=== PATIENT | female | born 1955 | race Caucasian/White ===

== ENCOUNTER 2017-12-01 10:48 | Emergency (ER) | payer BC, OTHER ==
[2017-12-01 10:54] VITALS: BP 167/88
--- OUTSIDE RECORDS SUMMARY | 2017-12-01 10:57 | XMS REPORT ---
:1955 External Reference #:[id number] Author Organization [facility] Address [address] [place] [address] Phone [phone] Care Team Providers Name Role Phone Gerri Kidd Care Team Information Medical Oncology Physician Unavailable Gerri Kidd Primary Care Physician Unavailable Payers Type Date Identification Numbers Payment Provider Subscriber Commercial Policy Number: [id number] [place] Plan Calli Castanon PayID: [id number] [address] [place] [address] Problems Date Description Provider Status Onset: 02/19/2012 Left lower quadrant pain Stephane Khan M.D. Active Family History Date Family Member(s) Problem(s) Comments General No family hx lung, colon, breast ca.No family hx diabetes. Father 88 d/t [place]. CABG/stents. Stroke, Prostate Ca. Colonic polyps. Mother 44, cerebral aneurysm. Patient's own Mra negative . Number of Children 3. oldest daughter, 30yo - Afib. Number of Siblings Siblings: 2 older brothers - HTN, Prostate CA - both. Social History Type Date Description Comments Education Highest level of education completed is a bachelor's degree. never finished masters [employer] school in virology and biochemistry. 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 Cigarette Use Current Cigarette Smoker 1 1 1/2 ppd when smokes. Pack Daily off and on for 25 years. smokes. Quit smoking with each . ETOH Use Currently consumes alcohol 1 glass of wine a week. Smoking Patient is a current smoker, off and on. smokes some days Daily Caffeine Consumes on average 3 cups with skim milk. of coffee per day Exercise Type/Frequency Exercises regularly. Walks Current dog nightly x 45 minutes, takes the stairs and mireles far away. Yoga 2/week Seat Belt/Car Seat Always uses a seat belt Allergies, Adverse Reactions, Alerts Date Description Reaction Status Severity Comments 11/19/1997 Codeine nausea, dizzyness,vomiting. active 11/15/2010 Levaquin hallucination active Medications Medication Date Status Form Strength Qnty SIG Indications Ordering Provider No Active 10/12/ Active Unknown Medications 2017 No Active 10/07/ Hx Unknown Medications 2017 - 2017 Nitrofurantoin 10/07/ Hx Capsules 100mg 10caps 1 by mouth Rashida Monohyd Macro 2018 - twice a [place], 10/12/ day with Afnp-C 2017 food Chantix Starting 08/08/ Hx Tablets 0.5mg X 11 1tabs refill Rick Wick 2017 - & 1 mg with 1 mg Negar, 10/06/ X 42 by mouth M.D. 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 2014 Ciprofloxacin 02/18/ Hx Tablets 500mg 20tabs 1 po bid Stephane T. HCL 2011 - Midura, 08/19/ M.D. 2014 Doxycline 11/15/ Hx Capsules 100mg 20caps 1 po bid 466.0 Donn A. 2010 - Darlow, 11/25/ MJoyce 2010 Keflex 09/29/ Hx Capsules 500mg 30caps 1 po tid Gerri Bustamante 2009 - with Michelle, 01/27/ yogurt/chandra Dean 2009 ir. Zyrtec 09/06/ Hx Tabs 10mg 16tabs 1 PO qd Lurdes 1999 - prn Max, 09/22/ DOCUMENT CONTROL ASSOCIATE 1999 Zithromax 06/03/ Hx 250mg 6units 2 Tabs Day Rick F. 1997 - 1 Shallish, 06/12/ M.D. 1997 1 Tab qd Days 2 Thru 5 Robitussin ac 06/03/ Hx 4Oz 1-2 TSP PO Rick F. 1997 - Q4H prn Shallish, 06/12/ Cough M.D. 1997 Zithromax 11/19/ Hx 250mg 6units 2 Tabs Day Kaur 1997 - 1 Konefal, 11/24/ BEREAVEMENT COUNSELOR-F 1997 1 Tab qd Days 2 Thru 5 Tessalon Pearls 11/19/ Hx 20unit 1 Or 2 tid Kaur 1997 - s Or QHS prn Konefal, 11/20/ BEREAVEMENT COUNSELOR-F 1997 Immunizations CPT Code Status Date Vaccine Lot # [id number] Given 11/07/2017 Tdap Tetanus, W Pertussis [id number] Vital Signs Date Vital Result Comment 11/07/2017 BP Systolic 120 mmHg BP Diastolic 80 mmHg Heart Rate 78 /min Body Temperature 97.0 F Height 59.5 inches 4'11.50" Weight 96.00 lb BMI (Body Mass Index) 19.1 kg/m2 10/07/2017 BP Systolic 154 mmHg BP Diastolic 66 mmHg Heart Rate 80 /min Body Temperature 99.6 F Respiratory Rate 16 /min Height 60 inches 5'0" Weight 98.00 lb BMI (Body Mass Index) 19.1 kg/m2 05/23/2016 BP Systolic 110 mmHg BP Diastolic 72 mmHg Heart Rate 84 /min Body Temperature 97.7 F Respiratory Rate 16 /min Height 60 inches 5'0" Weight 97.00 lb BMI (Body Mass Index) 18.9 kg/m2 04/03/2016 BP Systolic 126 mmHg BP Diastolic 74 mmHg Heart Rate 84 /min Body Temperature 97.9 F Respiratory Rate 16 /min Height 60 inches 5'0" Weight 96.12 lb BMI (Body Mass Index) 18.8 kg/m2 09/09/2014 BP Systolic 138 mmHg BP Diastolic 80 mmHg Heart Rate 88 /min Respiratory Rate 16 /min Height 60 inches 5'0" Weight 100.12 lb BMI (Body Mass Index) 19.6 kg/m2 08/19/2014 BP Systolic 162 mmHg BP Diastolic 86 mmHg Heart Rate 96 /min Body Temperature 98.1 F Respiratory Rate 16 /min Height 60 inches 5'0" Weight 99.00 lb BMI (Body Mass Index) 19.3 kg/m2 02/19/2012 BP Systolic 136 mmHg BP Diastolic 86 mmHg Heart Rate 102 /min Body Temperature 99.0 F Height 60 inches 5'0" Weight 101.00 lb BMI (Body Mass Index) 19.7 kg/m2 11/29/2010 BP Systolic 138 mmHg BP Diastolic 80 mmHg Heart Rate 84 /min Respiratory Rate 16 /min Height 60 inches 5'0" Weight 100.00 lb BMI (Body Mass Index) 19.5 kg/m2 11/21/2010 BP Systolic 160 mmHg BP Diastolic 80 mmHg Heart Rate 84 /min Body Temperature 98.6 F Height 60 inches 5'0" Weight 101.00 lb BMI (Body Mass Index) 19.7 kg/m2 11/15/2010 BP Systolic 150 mmHg BP Diastolic 90 mmHg Heart Rate 112 /min Body Temperature 99.1 F Respiratory Rate 16 /min O2 % BldC Oximetry 96 % Height 60 inches 5'0" Weight 101.00 lb BMI (Body Mass Index) 19.7 kg/m2 02/24/2010 BP Systolic 114 mmHg BP Diastolic 76 mmHg Heart Rate 84 /min Body Temperature 98.4 F Height 60 inches 5'0" Weight 108.00 lb BMI (Body Mass Index) 21.1 kg/m2 01/27/2010 BP Systolic 110 mmHg BP Diastolic 80 mmHg Heart Rate 88 /min Height 60 inches 5'0" Weight 110.00 lb BMI (Body Mass Index) 21.5 kg/m2 09/26/2009 BP Systolic 130 mmHg BP Diastolic 80 mmHg Heart Rate 102 /min Body Temperature 100.4 F Weight 113.00 lb 09/13/2009 BP Systolic 124 mmHg BP Diastolic 80 mmHg Heart Rate 96 /min Body Temperature 97.7 F Height 59 inches 4'11" Weight 113.00 lb BMI (Body Mass Index) 22.8 kg/m2 09/07/1999 BP Systolic 128 mmHg BP Diastolic 70 mmHg Body Temperature 98.4 F Weight 109.00 lb 06/03/1998 Body Temperature 98.2 F Weight 99.00 lb 11/19/1997 BP Systolic 114 mmHg R Arm BP Diastolic 70 mmHg R Arm Body Temperature 97.8 F Weight 101.50 lb Results Test Date Test Result H/L Range Note Laboratory test 11/07/2017 Cytology Thinprep <pending> finding w/rfx(cmc) Ua - Micro (Fma) 10/07/2017 Appearance cloudy Color yellow Glucose, Urine (Fma/CMC/CTX) - Bilirubin - Ketones - SP Grav >=1.030 Blood moderate PH 5.0 Protein - Urobil 0.2 Nitrite - Leukocytes (Fma/CMC/Centrex) small Hyaline - /Lpf Granular - /Lpf WBC (Fma,Centrex) 25-30 RBC 3-5 Mucus - /Lpf Epith few renal tubulr /Lpf Bacteria 1+ /Hpf Amorphous - /Lpf Crystals, Fluid (Fma/CMC/CTX) - Urine Culture And 10/07/2017 Urine Culture SEE RESULT BELOW 1 Sensitivities Laboratory test finding 09/21/2016 Surgical Interface SEE RESULT BELOW 2, 3 Order Laboratory test finding 06/07/2016 TSH 1.350 uIU/mL 0.450-4.5 4 00 CBC With 06/07/2016 WBC 7.2 x10E3/uL 3.4-10.8 4 Differential/Platelet RBC 4.82 x10E6/uL 3.77-5.28 4 Hemoglobin 14.4 g/dL 11.1-15.9 4 Hematocrit 44.5 % 34.0-46.6 4 MCV 92 fL 79-97 4 MCH 29.9 pg 26.6-33.0 4 MCHC 32.4 g/dL 31.5-35.7 4 RDW 13.8 % 12.3-15.4 4 Platelets 340 x10E3/uL 150-379 4 Neutrophils 55 % 4 Lymphs 36 % 4 Monocytes 7 % 4 Eos 2 % 4 Basos 0 % 4 Immature Cells TNP 4 Neutrophils (Absolute) 4.0 x10E3/uL 1.4-7.0 4 Lymphs (Absolute) 2.6 x10E3/uL 0.7-3.1 4 Monocytes(Absolute) 0.5 x10E3/uL 0.1-0.9 4 Eos (Absolute) 0.2 x10E3/uL 0.0-0.4 4 Baso (Absolute) 0.0 x10E3/uL 0.0-0.2 4 Immature Granulocytes 0 % 4 Immature Grans (Abs) 0.0 x10E3/uL 0.0-0.1 4 NRBC TNP 4 Hematology Comments: TNP 4 Metabolic Panel (14), Comprehensive 06/07/2016 Glucose, Serum 93 mg/dL 65 -99 4 BUN 16 mg/dL 8-27 4 Creatinine, Serum 0.63 mg/dL 0.57-1.00 4 eGFR If NonAfricn Am 97 mL/min/1.73 >59 4 eGFR If Africn Am 112 mL/min/1.73 >59 4 BUN/Creatinine Ratio 25 11-26 4 Sodium, Serum 142 mmol/L 134-144 4, 5 Potassium, Serum 4.5 mmol/L 3.5-5.2 4 Chloride, Serum 102 mmol/L 96-106 4, 6 Carbon Dioxide, Total 26 mmol/L 18-29 4 Calcium, Serum 9.7 mg/dL 8.7-10.3 4 Protein, Total, Serum 7.0 g/dL 6.0-8.5 4 Albumin, Serum 4.7 g/dL 3.6-4.8 4 Globulin, Total 2.3 g/dL 1.5-4.5 4 A/G Ratio 2.0 1.1-2.5 4 Bilirubin, Total 0.4 mg/dL 0.0-1.2 4 Alkaline Phosphatase, S 77 IU/L 39-117 4 Ast (Sgot) 27 IU/L 0-40 4 Alt (SGPT) 28 IU/L 0-32 4 Laboratory test finding 06/07/2016 Vitamin D, 25-Hydroxy 30.9 ng/mL 30.0- 100.0 4, 7 Ua - Micro (Fma) 04/03/2016 Appearance cloudy Color yellow Glucose, Urine (Fma/CMC/CTX) neg Bilirubin neg Ketones neg SP Grav 1.020 Blood trace-lysed PH 7.0 Protein neg Urobil 0.2 Nitrite positive Leukocytes (Fma/CMC/Centrex) large WBC (Fma,Centrex) >75 RBC 1-2 Mucus small /Lpf Epith few /Lpf Bacteria 4+ /Hpf Urine Culture Routine 04/03/2016 Urine Culture, Routine Final report 8 , 9 Result 1 Escherichia coli 8, 10 Antimicrobial Susceptibility See Comment: 8, 11 Comprehensive Metabolic 09/15/2014 Glucose 95 mg/dL 70-100 12 BUN 19 mg/dL High 4-18 12 Creatinine, Serum 0.67 mg/dL 0.50-1.10 12 Sodium 143 mmol/L 136-146 12 Potassium 4.7 mmol/L 3.5-5.3 12 Chloride 108 mmol/L 98-110 12 Carbon Dioxide 30 mmol/L 20-32 12 Albumin 4.5 g/dL 3.5-4.7 12 Protein, Total 7.0 g/dL 6.4-8.3 12 Calcium 9.2 mg/dL 8.4-10.4 12 Alkaline Phosphatase 93 U/L 10-118 12 Sgot (Ast) 28 U/L 3-40 12 SGPT (Alt) 32 U/L 7-50 12 Bilirubin, Total 0.40 mg/dL 0.30-1.20 12 Lipid Panel 09/15/2014 Cholesterol, Total 175 mg/dL <200 12 Triglycerides 52 mg/dL <150 12 HDL Cholesterol 59 mg/dL 40-60 12 Chol/HDL Cholesterol 3.0 12, 13 LDL Cholesterol, Calc. 106 mg/dL 12, 14 LDL/HDL Cholesterol 1.8 12, 15 CBC 09/15/2014 WBC 7.5 x10E3/uL 4.3-10.9 12 RBC 4.52 x10E6/uL 3.80-5.30 12 Hemoglobin 13.7 g/dL 11.8-15.8 12 Hematocrit 41.6 % 35.0-47.0 12 MCV 92.0 fl 82.0-98.0 12 MCH 30.3 pg 27.5-33.5 12 MCHC 32.9 g/dL 32.0-36.0 12 RDW 14.7 % High 11.5-14.5 12 Platelet Count 319 x10E3/uL 130-400 12 MPV 10.3 fl 8.6-12.6 12 Segmented Neutrophils 64.1 % 44.0-74.0 12 Lymphocytes 24.2 % 15.0-45.0 12 Monocytes 9.5 % 2.0-13.0 12 Eosinophils 1.7 % 0.0-6.0 12 Basophils 0.5 % 0.0-2.0 12 Neutrophil Absolute 4.8 x10E3/uL 1.4-7.0 12 Lymphocytes Absolute 1.8 x10E3/uL 1.0-3.4 12 Monocyte Absolute 0.7 x10E3/uL 0.2-1.0 12 Eosinophil Absolute 0.1 x10E3/uL 0.0-0.5 12 Basophil Absolute 0.0 x10E3/uL 0.0-0.2 12 Egfr (Calculated) 09/15/2014 Estimated GFR (CALCULATED) 12 Egfr 96 12, 16 Egfr, -Afghan 112 12, 17 Laboratory test finding 09/09/2014 Thin Prep W/HPV(Lsil/LUDWIG/Asc) SEE NOTE 18 Ua - Micro (Fma) 08/19/2014 Appearance CLOUDY Color YELLOW Glucose, Urine (Fma/CMC/CTX) NEG Bilirubin NEG Ketones NEG SP Grav 1.015 Blood LARGE PH 5.5 Protein NEG Urobil 0.2 Nitrite NEG Leukocytes (Fma/CMC/Centrex) SMALL Hyaline - /Lpf Granular - /Lpf WBC (Fma,Centrex) 15-20 RBC >100 Mucus - /Lpf Epith RARE /Lpf Bacteria TRACE /Hpf Amorphous - /Lpf Crystals, Fluid (Fma/CMC/CTX) - Z#Comments - Laboratory test finding 08/19/2014 Urine Culture No significant g <SEE 19 NOTE> Ua - Micro (Fma) 02/19/2012 Appearance clear Color yellow Glucose - Bilirubin - Ketones - SP Grav 1.025 Blood moderate PH 5.5 Protein - Urobil 0.2 Nitrite - Leukocytes (Fma/CMC/Centrex) trace Hyaline - /Lpf Granular - /Lpf WBC (Fma,Centrex) 2-3 RBC 5-10 Mucus - /Lpf Epith occ /Lpf Bacteria rare /Hpf Amorphous - /Lpf Crystals, Fluid (Fma/CMC/CTX) - Egfr (Calculated) 02/19/2012 Estimated GFR (CALCULATED) 20 Egfr >60 20, 21 Egfr, -Afghan >60 20, 22 CBC 02/19/2012 WBC 14.7 x10E3/uL High 4.3-10.9 20 RBC 4.62 x10E6/uL 3.80-5.30 20 Hemoglobin 14.1 g/dL 11.8-15.8 20 Hematocrit 42.7 % 35.0-47.0 20 MCV 92.4 fl 82.0-98.0 20 MCH 30.5 pg 27.5-33.5 20 MCHC 33.0 g/dL 32.0-36.0 20 RDW 14.3 % 11.5-14.5 20 Platelet Count 325 x10E3/uL 130-400 20 MPV 11.0 fl High 6.5-10.5 20 Segmented Neutrophils 77.5 % High 44.0-74.0 20 Lymphocytes 12.1 % Low 15.0-45.0 20 Monocytes 9.8 % 2.0-13.0 20 Eosinophils 0.3 % 0.0-6.0 20 Basophils 0.3 % 0.0-2.0 20 Neutrophil Absolute 11.4 x10E3/uL High 1.4-7.0 20 Lymphocytes Absolute 1.8 x10E3/uL 1.0-3.4 20 Monocyte Absolute 1.4 x10E3/uL High 0.2-1.0 20 Eosinophil Absolute 0.0 x10E3/uL 0.0-0.5 20 Basophil Absolute 0.0 x10E3/uL 0.0-0.2 20 Comprehensive Metabolic 02/19/2012 Glucose 85 mg/dL 70-100 20 BUN 13 mg/dL 4-18 20 Creatinine, Serum 0.66 mg/dL 0.50-1.10 20 Sodium 140 mmol/L 136-146 20 Potassium 4.2 mmol/L 3.5-5.3 20 Chloride 103 mmol/L 98-110 20 Carbon Dioxide 28 mmol/L 20-32 20 Albumin 4.6 g/dL 3.5-4.7 20 Protein, Total 7.1 g/dL 6.4-8.3 20 Calcium 9.2 mg/dL 8.4-10.4 20 Alkaline Phosphatase 101 U/L 10-118 20 Sgot (Ast) 18 U/L 3-40 20 SGPT (Alt) 12 U/L 7-50 20 Bilirubin, Total 0.40 mg/dL 0.30-1.20 20 Laboratory test finding 02/24/2010 Surgical Pathology SEE NOTE 23 Laboratory test finding 01/30/2010 CRP (High 1.92 mg/L 0.00-3.00 24, 25 Sensitivity) Comprehensive Metabolic 01/30/2010 Glucose 112 mg/dL High 70-100 24 BUN 17 mg/dL 4-18 24 Creatinine, Serum 0.81 mg/dL 0.50-1.10 24 Sodium 142 mmol/L 136-146 24 Potassium 4.3 mmol/L 3.5-5.3 24 Chloride 107 mmol/L 98-110 24 Carbon Dioxide 33 mmol/L High 20-32 24 Albumin 4.5 g/dL 3.5-4.7 24 Protein, Total 6.8 g/dL 6.4-8.3 24 Calcium 9.3 mg/dL 8.4-10.4 24 Alkaline Phosphatase 86 U/L 10-118 24 Sgot (Ast) 22 U/L 3-40 24 SGPT (Alt) 21 U/L 7-50 24 Bilirubin, Total 0.40 mg/dL 0.30-1.20 24 Lipid Panel 01/30/2010 Cholesterol, Total 198 mg/dL <200 24 Triglycerides 99 mg/dL <150 24 HDL Cholesterol 54 mg/dL 40-60 24 Chol/HDL Cholesterol 3.7 24, 26 LDL Cholesterol, Calc. 124 mg/dL 24, 27 LDL/HDL Cholesterol 2.3 24, 28 Laboratory test finding 01/30/2010 TSH (Thyrotropin) 1.810 uIU/ml 0.350- 5.500 24 CBC 01/30/2010 WBC 9.5 x10E3/uL 4.3-10.9 24 RBC 4.76 x10E6/uL 3.80-5.30 24 Hemoglobin 14.3 g/dL 11.8-15.8 24 Hematocrit 44.5 % 35.0-47.0 24 MCV 93.5 fl 82.0-98.0 24 MCH 30.0 pg 27.5-33.5 24 MCHC 32.1 g/dL 32.0-36.0 24 RDW 14.9 % High 11.5-14.5 24 Platelet Count 332 x10E3/uL 130-400 24 MPV 10.4 fl 6.5-10.5 24 Segmented Neutrophils 55.1 % 44.0-74.0 24 Lymphocytes 33.0 % 15.0-45.0 24 Monocytes 8.2 % 2.0-13.0 24 Eosinophils 3.2 % 0.0-6.0 24 Basophils 0.5 % 0.0-2.0 24 Neutrophil Absolute 5.2 x10E3/uL 1.4-7.0 24 Lymphocytes Absolute 3.1 x10E3/uL 1.0-3.4 24 Monocyte Absolute 0.8 x10E3/uL 0.2-1.0 24 Eosinophil Absolute 0.3 x10E3/uL 0.0-0.5 24 Basophil Absolute 0.0 x10E3/uL 0.0-0.2 24 GFR Calculated 01/30/2010 GFR (Calculated) >60 24, 29 Ua - Micro (Fma) 01/27/2010 Appearance CLEAR Color YELLOW Glucose NEG Bilirubin NEG Ketones NEG SP Grav 1.010 Blood SMALL PH 5.5 Protein NEG Urobil 0.2 Nitrite NEG Leukocytes (Fma/CMC/Centrex) NEG Hyaline - /Lpf Granular - /Lpf WBC (Fma,Centrex) 1-2 RBC 3-5 Mucus - /Lpf Epith OCCASS /Lpf Bacteria RARE /Hpf Amorphous - /Lpf Crystals, Fluid (Fma/CMC/CTX) - Z#Comments - Laboratory test 01/27/2010 Thin Prep W/HPV(Lsil/LUDWIG/Asc) SEE NOTE 30 finding Laboratory test 09/26/2009 Quickstrep NEGATIVE Negative finding Throat - Beta Strep Fma NEG @ 48 HRS 1 SEE RESULT BELOW Name: CALLI CASTANON : [address]: Rashida Riojas FIELD TRAINING MANAGER Acct: [id number] Unit: [id number] AGE: 62 Location: [facility] Re10/07/17 SEX: F Status: REG REF SPEC: [id number] JESSICA: 10/07/17-1526 [facility] DR: Rashida Riojas NP REQ: [id number] RECD: 10/07/17 STATUS: COMP _ SOURCE: URINE SPDESC: ORDERED: Urine Culture COMMENTS: [id number] squires urine culture tube Procedure Result Reported Site Urine Culture Final 10/08/17- 1703 ML Few Enterobacteriacae; possible contamination. * ML - Main Lab . END OF REPORT DEPARTMENT OF PATHOLOGY, [address] [place] [address] Rc Duong M.D. Director KARLEE # [id number] 2 [id number] SEE RESULT BELOW Name: CALLI CASTANON : [address]: Byron Pimentel MD Acct: [id number] Unit: [id number] AGE: 61 Location: [facility] Re09/21/16 SEX: F Status: DEP REF SPEC: [id number] JESSICA: 09/21/16 [facility] [address]: Byron Pimentel MD REQ: [id number] RECD: 09/21/16 STATUS: CIARA VILLALOBOS DR: Gerri Kidd MD _ ORDERED: LEVEL IV/2 COMMENTS: [id number] FINAL DIAGNOSIS 1. Colon, right, biopsy: -- Hyperplastic polyp. 2. Colon, 20 cm, biopsy: -- Hyperplastic polyp. CLINICAL HISTORY No history given POST-OPERATIVE DIAGNOSIS Colonoscopy into terminal ileum, prep good - 2 polyps removed, sigmoid diverticulosis. Conclusions/Plan: Two polyps removed GROSS DESCRIPTION 1. The specimen is received in formalin labeled, Right Colon Polyp, and consists of a 1.1 x 0.8 x 0.2 cm aggregate of cruz white irregular soft tissue fragments, which is submitted entirely in one cassette. 2. The specimen is received in formalin labeled, Colon Polyp at 20 Cm, and consists of a 0.8 x 0.6 x 0.4 cm cruz-pink polypoid soft tissue fragment admixed with scant organic debris. The specimen is inked, trisected and entirely submitted in one cassette. Signed (signature on file) Rc Duong MD 1342 END OF REPORT * ML=Testing performed at Main Lab DEPARTMENT OF PATHOLOGY, [address] [place] [address] Rc Duong M.D. Director [facility] # [id number] 4 1 sst 5 Please note reference interval change 6 Please note reference interval change 7 Vitamin D deficiency has been defined by the [place] [employer] and an Endocrine Society practice guideline as a level of serum 25-OH vitamin D less than 20 ng/mL (1,2). The Endocrine Society went on to further define vitamin D insufficiency as a level between 21 and 29 ng/mL (2). 1. IOM ([place] [employer]). 2010. Dietary reference intakes for calcium and D. [place]: The National Academies Press. 2. Juanita MF, Tha NC, Radha SINGER, et al. Evaluation, treatment, and prevention of vitamin D deficiency: an Endocrine Society clinical practice guideline. JCEM. 2011 Dec; 96(7):1911-30. 8 SRC:urine 1 madera top 9 Source of Specimen: urine 1 madera top 10 Escherichia coli Source of Specimen: urine 1 madera top 50,000-100,000 colony forming units per mL 11 Source of Specimen: urine 1 madera top S=Susceptible; I=Intermediate; R=Resistant P=Positive; N=Negative MICS are expressed in micrograms per mL Antibiotic RSLT#1 RSLT#2 RSLT#3 RSLT#4 Amoxicillin/Clavulanic Acid S Ampicillin R Cefepime S Ceftriaxone S Cefuroxime S Cephalothin S Ciprofloxacin S Ertapenem S Gentamicin S Imipenem S Levofloxacin S Nitrofurantoin S Piperacillin R Tetracycline R Tobramycin S Trimethoprim/Sulfa R 12 FASTING; 1 SST; 1 Lav 13 CHOL/HDL Risk Ratio Levels MALE FEMALE 1/2 X Average 3.4 3.3 Average 5.0 4.4 2 X Average 9.5 7.0 3 X Average 24.0 11.0 14 Optimal under 100 mg/dl Near or above Optimal 100 - 129 mg/dl Borderline High 130 - 159 mg/dl High 160 - 189 mg/dl Very High above 190 mg/dl 15 LDL/HDL Risk Ratio Levels MALE FEMALE 1/2 X Average 1.0 1.5 Average 3.6 3.2 2 X Average 6.3 5.0 3 X Average 8.0 6.1 16 >59 mL/min/1.73m2 17 >59 mL/min/1.73m2 Note: Persistent reduction for 3 months or more in an eGFR <60 mL/min/1.73m2 defines CKD. Patients with eGFR values >=60 mL/min/1.73m2 may also have CKD if evidence of persistent proteinuria is present. Additional information may be found at [email or web address]/professionals/kdoqi. 18 [employer]. DEPARTMENT OF PATHOLOGY or Ext. [phone], Fax LEASING REPRESENTATIVE CYTOLOGY REPORT Patient: CALLI CASTANON : 1955 AGE: 59 Y SEX: F Acct: [id number] Procedure Date: 09/09/2014 Date Received: 09/10/2014 Requesting Provider: PERLA SPARKS Location[place] [facility] [place] No. [id number] Requisition #: [id number] CYTOLOGIC INTERPRETATION: SPECIMEN ADEQUACY SATISFACTORY FOR EVALUATION, ENDOCERVICAL TRANSFORMATION ZONE COMPONENT PRESENT GENERAL CATEGORIZATION NEGATIVE FOR INTRAEPITHELIAL LESIONS OR MALIGNANCY RECOMMENDATIONS Refer to the corresponding web sites for 2012 updated general recommendation guidelines of U.S. preventive service task force for cervical cancer screening, and www.asccp.org//qtybezswg4580. COMMENTS Thin Prep Pap tests are examined with an FDA approved location-guidance system. SPECIMEN SUBMITTED: * * (HPVII) THIN PREP W/HPV (LSIL/ASC/LUDWIG) * * ENDOCERVICAL RELEVANT HISTORY: : 6 Prev.normal: 8-6-10 Para: 3 Comment: LMP: SOFTWARE PROJECT LEAD Screened/Rescreened Electronically Signed Sign Out Date/Time: by: by: JASSON MORRIS(ASCP) 09/10/2014 13:50 Note: The Pap smear is a screening test designed to aid in the detection of premalignant and malignant conditions of the uterine cervix. It is not a diagnostic procedure and should not be used as the sole means of detecting cervical cancer. Both false-positive and false-negative reports do occur. 00 UA Pap Smear performed at [facility] Dir: Joe Kelley MD, [address] [facility] [id number] 01 twister hand [facility] Dir: Rosy Kent MD, [address] [facility] [id number] 02 Lab [facility] Dir: Bradley Guillory MD, [address] [place] [phone] For inquiries regarding HPV test results, the physician may contact Lab Cj: [phone] . 19 No significant growth. 20 1 sst; 1 lav 21 >59 mL/min/1.73m2 22 >59 mL/min/1.73m2 Note: Persistent reduction for 3 months or more in an eGFR <60 mL/min/1.73m2 defines CKD. Patients with eGFR values >=60 mL/min/1.73m2 may also have CKD if evidence of persistent proteinuria is present. Additional information may be found at [email or web address]. 23 [employer]. DEPARTMENT OF PATHOLOGY or Extension [phone] SURGICAL PATHOLOGY REPORT PATIENT: CALLI CASTANON : 1955 AGE: 55 Y SEX: F ACCT: [id number] PROCEDURE DATE: 02/24/2010 DATE RECEIVED: 02/28/2010 REQUESTING PHYSICIAN: LUC MENENDEZ MD LOCATION: [facility] Case No. [id number] FINAL DIAGNOSIS: SKIN LESION, UPPER BACK (BIOPSY): FRAGMENT OF NEUROTIZED COMPOUND NEVUS. MK0/ra D/ GROSS DESCRIPTION: The specimen is received in formalin labeled Calli Castanon, lab #[id number] consists of a 0.7 x 0.6 x 0.3cm light cruz unevenly raised firm rubbery pinched papule of skin. The margin is inked black, it is serially sectioned. TS/ AMP/gb D/T 02/28/10 CLINICAL DATA: [id number] NONE PROVIDED SPECIMEN SUBMITTED: LESION, UPPER BACK ADDITIONAL COPIES SENT TO: Electronically Signed by: Signed Date and Time: CRUZ JANG MD PATHOLOGIST 03/01/2010 15:53 ____ Performed @ [facility], [address] [place], [place] [id number] 24 FASTING; 2 SST; 1 PURPLE TOP TUBE 25 . hs-CRP Result (mg/L) Risk Level <1.0 Low 1.0-3.0 Average >3.0 High Patients with persistently unexplained, marked elevation of hs-CRP (greater than 10 mg/L) after repeated testing should be evaluated for non-cardiovascular etiologies. . 26 CHOL/HDL Risk Ratio Levels MALE FEMALE 1/2 X Average 3.4 3.3 Average 5.0 4.4 2 X Average 9.5 7.0 3 X Average 24.0 11.0 27 Optimal under 100 mg/dl Near or above Optimal 100 - 129 mg/dl Borderline High 130 - 159 mg/dl High 160 - 189 mg/dl Very High above 190 mg/dl 28 LDL/HDL Risk Ratio Levels MALE FEMALE 1/2 X Average 1.0 1.5 Average 3.6 3.2 2 X Average 6.3 5.0 3 X Average 8.0 6.1 29 mL/min/1.73m2 . Normal Function or Mild Renal Disease, if clinically at risk: >or=60 Moderately decreased: 30 - 59 Severely decreased: 15 - 29 Renal Failure: <15 . Please note that the MDRD equation requires an additional adjustment for -Americans (multiply the GFR result by 1.210). . Glomerular Filtration Rate (GFR) is estimated based on the MDRD equation, which assumes a steady state for creatinine (Gayla Int Med 139/2 137-149, 2003), as recommended by the National Kidney Disease Education Program in conjunction with the National Institutes of Health and the National Kidney Foundation. . Clinical conditions in which it may be necessary to measure GFR by using clearance methods include extremes of age and body size, severe malnutrition or obesity, diseases of skeletal muscle, paraplegia or quadriplegia, vegetarian diet, rapidly changing kidney function, and calculation of the dose of potentially toxic drugs that are excreted by the kidneys. [facility] [employer] DEPARTMENT OF PATHOLOGY or Extension 2944 LEASING REPRESENTATIVE CYTOLOGY REPORT PATIENT: CALLI CASTANON : 1955 AGE: 54 Y SEX: F ACCT: [id number] PROCEDURE DATE: 01/27/2010 DATE RECEIVED: 01/30/2010 REQUESTING PHYSICIAN: GERRI KIDD MD LOCATION: [facility] [place] No. [id number] PATIENT DATA: [id number] SPECIMEN SUBMITTED: * * (HPVII) THIN PREP W/HPV (LSIL/ASC/LUDWIG) * * ENDOCERVICAL RELEVANT HISTORY: Menarche: Y Contraceptive: NONE : 6 Prev.normal: 09/30 Para: 3 Comment: POST MENOPAUSAL SPECIMEN ADEQUACY SATISFACTORY FOR EVALUATION. THE PRESENCE OF TRANSFORMATION ZONE COMPONENT CANNOT BE DETERMINED DUE TO ATROPHIC CHANGES. GENERAL CATEGORIZATION NEGATIVE FOR INTRAEPITHELIAL LESIONS OR MALIGNANCY ADDITIONAL COPIES SENT TO: Screened/Rescreened Electronically Signed Sign Out Date/Time: by: by: JESSY FRANNIE HE, 01/30/2010 15:01 CT(ASCP) Thin Prep Pap tests are examined with an FDA-approved location-guidance system (79607). Performed @ [facility] [address] [place] [id number] Procedures Date CPT Code Description Status Comment 09/21/2016 Colonoscopy Completed hyperplastic polyps. 7-10 years. family hx of polyps. 09/23/2014 Mammogram Completed 11/15/2010 27305 Pulse Oximetry Completed 02/24/2010 86764 Excise Benign Lesion Completed 1.1-2CM Trunk/Arm/Leg 02/24/2010 41684 Excise Benign Lesion Completed .6-1CM Trunk/Arm/Leg 10/07/2009 Mammogram Completed Encounters Type Date Location Provider CPT E/M Dx Office Visit 10/07/2017 2:15p [facility] Rashida Beulah, 18332 N39.0 Afnp-C Office Visit 05/23/2016 10:00a [facility] Office Gerri Kidd, 95615 Z00.00 Jermaine E55.9 F17.210 Z71.6 Office Visit 04/03/2016 11:15a [facility] Office Oz Jackson-C 36136 N39.0 Office Visit 09/09/2014 1:00p [facility] KALEB Schmitt 97279 V72.31 V76.12 Office Visit 08/19/2014 9:45a [facility] KALEB Schmitt 81979 599.0 Office Visit 02/19/2012 10:20a [facility] Office Stephane Khan M.D. 12724 789.04 Office Visit 11/29/2010 9:00a [facility] Gerri Kidd M.D. 19437 401.1 Office Visit 11/21/2010 3:10p [facility] Gerri Kidd M.D. 89551 483.8 Office Visit 11/15/2010 10:50a [facility] Donn Dsouza M.D. 25967 466.0 Office Visit 02/24/2010 1:00p [facility] Gerri Kidd M.D. 44186 216.5 448.1 Office Visit 01/27/2010 9:00a [facility] Office Gerri Kidd M.D. 31311 V72.31 305.1 V18.51 V17.3 618.04 562.11 448.1 789.39 599.72 Office Visit 09/26/2009 5:30p [facility] Office Gerri Kidd M.D. 40109 462 Office Visit 09/13/2009 3:00p [facility] Office Gerri Kidd M.D. 90414 793.80 305.1 Plan of Care Future Appointment(s):11/15/2017 9:00 am - Gerri Kidd M.D. at [facility] Zuhjpp8411/07/2017 - Gerri Kidd M.D.Z00.00 Encntr for general adult medical exam w/o abnormal findingsNew Labs:CBC Electronic (Fma)CCC-Comp+ Lipid (Fma)TSH 3GComments:I recommend regular physical exams with attention to good nutrition and exercise, eye exams every other year, and dental exams twice yearly. ~B_~U_Goals:~u_~b_2 fresh fruits daily3 helpings of fresh green and multicolored vegetablesEat from the whole color spectrum. 40-60 Oz water daily~B_~U_MOVE YOUR BODY.~u_~b_ Bodies were made to be moved. 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 N81.6 RectoceleComments:might consider a colorectal consult in the future.E55.9 Vitamin D deficiency, unspecifiedNew Labs:Vitamin D 1,25 + 25 GherqefS25.31 Encntr screen mammogram for malignant neoplasm of breastNew Xrays:Mammography Screening, Bilateral; 2-View Each [id number] Encounter for immunizationComments: tdap todayAllComments:~B_~U_Medication Management~b_~u_ Patient Understands medications she's taking? Yes No Are there Barriers to Adherence? Yes No Has the patient been asked about herbal supplements and therapies, and OTC meds? Yes No
--- NOTE | 2017-12-01 12:55 | RAD ---
INDICATION: Right shoulder pain since falling off a stool the previous day. COMPARISON: None. TECHNIQUE: 4 views of the right shoulder were obtained. FINDINGS: The adequately corticated bones are in normal alignment. Joint spaces appear maintained. No fracture, dislocation or focal bony abnormality is seen. IMPRESSION: Normal radiograph of the right shoulder. If the patient's symptoms persist, follow-up imaging is recommended.
--- NOTE | 2017-12-01 14:58 | ED ---
Upper Extremity Pain - HPI Summary HPI Summary: Patient is a 62-year-old female who presents emergency department for right shoulder injury. Patient states she was on a 3 legged stool, roughly one foot stepstool outside yesterday when she lost her balance and landed onto her right shoulder. Patient denies striking her head or loss of consciousness. Movement makes symptoms worse. Rest makes symptoms better. No associated symptoms of headache, neck pain, chest pain, shortness of breath, numbness, tingling or weakness. Symptoms are mild in severity. - History of Current Complaint Chief Complaint: EDExtremityUpper Stated Complaint: FALL/RT ARM PAIN Time Seen by Provider: 12/01/17 14:31 Hx Obtained From: Patient - Allergies/Home Medications Allergies/Adverse Reactions: Allergies Allergy/AdvReac Type Severity Reaction Status Date / Time codeine Allergy Nausea And Verified 12/01/17 10:53 Vomiting levofloxacin [From Levaquin] Allergy Hallucinati Verified 12/01/17 10:53 ons PMH/Surg Hx/FS Hx/Imm Hx Previously Healthy: Yes Infectious Disease History: No Infectious Disease History: Denies: Traveled Outside the [place] in Last 30 Days - Social History Occupation: Employed Full-time Lives: With Family Alcohol Use: Rare Substance Use Type: Reports: None Smoking Status (MU): Heavy Every Day Tobacco Smoker Review of Systems Cardiovascular: Negative Respiratory: Negative Positive: Other - Right shoulder pain Skin: Negative Negative: Headache, Weakness, Paresthesia, Numbness, Syncope All Other Systems Reviewed And Are Negative: Yes Physical Exam Triage Information Reviewed: Yes Vital Signs On Initial Exam: Initial Vitals Temp Pulse Resp BP Pulse Ox 96.7 F 83 16 167/88 99 12/01/17 10:49 12/01/17 10:49 12/01/17 10:49 12/01/17 10:49 12/01/17 10:49 Vital Signs Reviewed: Yes Appearance: Positive: Well-Appearing - Patient sitting on chair no acute chest. Pleasant. present. Skin: Positive: Warm, Dry Head/Face: Positive: Normal Head/Face Inspection Eyes: Positive: Normal Neck: Positive: Supple, Nontender - No midline tenderness Musculoskeletal: Positive: Other - Right arm is neurovascularly intact with good radial pulse. Pain on palpation over the proximal right humerus. Limited range of motion secondary to pain. No ecchymosis or wounds. Neurological: Positive: Normal, CN Intact II-III Psychiatric: Positive: Affect/Mood Appropriate Diagnostics - Vital Signs Vital Signs Temp Pulse Resp BP Pulse Ox 12/01/17 10:49 96.7 F 83 16 167/88 99 - Laboratory Lab Statement: Any lab studies that have been ordered have been reviewed, and results considered in the medical decision making process. Course/Dx - Course Course Of Treatment: Patient presenting to the ER for right shoulder injury after a fall that occurred yesterday. No other injuries were sustained. X- rays the right shoulder negative for fracture dislocation, reading per radiology. Results were discussed. Sling given for comfort. Advised patient only wear sling intermittently and to keep shoulder moving. Recommend patient follow up with orthopedics for further evaluation, clinical information provided. Advised ice and rest shoulder. Anti-inflammatories for pain. Patient understands and agrees plan. - Diagnoses Differential Diagnosis/HQI/PQRI: Positive: Contusion, Fracture (Closed), Strain , Sprain Provider Diagnoses: Shoulder sprain Discharge - Sign-Out/Discharge Documenting (check all that apply): Discharge/Admit/Transfer - Discharge Plan Condition: Good Disposition: HOME Patient Education Materials: Shoulder Sprain (ED) Forms: *Work Release Referrals: Robin Carrizales MD [Medical Doctor] - Gerri Martinez MD [Primary Care Provider] - Additional Instructions: Call the orthopedic office, Dr. Carrizales, to schedule a follow up appointment Ice and rest shoulder Tylenol or Motrin for pain as directed Return to ER if symptoms change or worsen - Billing Disposition and Condition Condition: GOOD Disposition: Home
== END 2017-12-01 14:59 | disposition home or self-care (01) ==
LOC: ED 10:48
DX: S43.401A Unspecified sprain of right shoulder joint, initial encounter (principal); W07.XXXA Fall from chair, initial encounter; Y92.9 Unspecified place or not applicable; F17.200 Nicotine dependence, unspecified, uncomplicated; Z88.3 Allergy status to other anti-infective agents; Z88.5 Allergy status to narcotic agent
CPT/HCPCS: 99282

== ENCOUNTER 2019-06-18 20:57 | Emergency (ER) | payer BC, OTHER ==
--- NOTE | 2019-06-18 21:20 | ED ---
HPI Chest Pain - HPI Summary HPI Summary: This patient is a 64 year old female with a Hx of Hypertension presenting to [facility] with a chief complaint of chest pain. She states the pain started in her back after she ate and radiated to across her chest. She now states it is at her left anterior radiating to her left arm. She thought it may be acid reflux and she took tums and it did not relieve the pain. She reports mild nausea and cough. Denies skin diaphoresis, SOB. She has a family Hx of [place] in her father in his 60s, Grandfather in 50s. States no recent travel or surgeries. She rates her pain 3/10 in severity. She states she has not been prescribed medication for her hypertension. Medications reviewed, allergies noted. - History of Current Complaint Chief Complaint: EDChestPainROMI Time Seen by Provider: 06/18/19 21:05 Hx Obtained From: Patient Onset/Duration: Started Hours Ago Pain Intensity: 3 Pain Scale Used: 0-10 Numeric Chest Pain Location: Upper Sternal Chest Pain Radiates: Yes Chest Pain Radiates To:: Back, Arm - Allergy/Home Medications Allergies/Adverse Reactions: Allergies Allergy/AdvReac Type Severity Reaction Status Date / Time codeine Allergy Nausea And Verified 06/18/19 21:07 Vomiting levofloxacin [From Levaquin] Allergy Hallucinati Verified 06/18/19 21:07 ons PMH/Surg Hx/FS Hx/Imm Hx Endocrine/Hematology History: Denies: Hx Diabetes Cardiovascular History: Reports: Hx Hypertension Denies: Hx Pacemaker/ICD Respiratory History: Denies: Hx Asthma History: Denies: Hx Renal Disease Sensory History: Denies: Hx Hearing Aid Psychiatric History: Denies: Hx Panic Disorder - Cancer History Hx Chemotherapy: No Hx Radiation Therapy: No - Surgical History Surgery Procedure, Year, and Place: CERVICAL SPINE FUSION WITH BONE GRAFTING C3- C4;. TIB-FIB FX REPAIR, AND REMOVAL OF HARDWARE; Infectious Disease History: No Infectious Disease History: Denies: Traveled Outside the [place] in Last 30 Days - Family History Known Family History: Positive: Cardiac Disease - Social History Alcohol Use: Rare Substance Use Type: Reports: None Smoking Status (MU): Heavy Every Day Tobacco Smoker Review of Systems Positive: Chest Pain Positive: Cough. Negative: Shortness Of Breath Positive: Nausea All Other Systems Reviewed And Are Negative: Yes Physical Exam - Summary Physical Exam Summary: Constitutional: Well-developed, Well-nourished, Alert. (-) Distressed Skin: Warm, Dry HENT: Normocephalic; Atraumatic Eyes: Conjunctiva normal Neck: Musculoskeletal ROM normal neck. (-) JVD, (-) Stridor, (-) Tracheal deviation Cardio: Rhythm regular, rate normal, Heart sounds normal; Intact distal pulses; Radial pulses are 2+ and symmetric. (-) Murmur Pulmonary/Chest wall: Effort normal. (-) Respiratory distress, (-) Wheezes, (-) Rales Abd: Soft, (-) tenderness, (-) Distension, (-) Guarding, (-) Rebound Musculoskeletal: (-) Edema. Good pulses bilaterally in radius, No calf tenderness, No venous cords, No pain with dorsiflexion of foot Lymph: (-) Cervical adenopathy Neuro: Alert, Oriented x3 Psych: Mood and affect Normal Triage Information Reviewed: Yes Vital Signs On Initial Exam: Initial Vitals Temp Pulse Resp BP Pulse Ox 97.5 F 94 18 187/95 100 06/18/19 21:04 06/18/19 21:04 06/18/19 21:04 06/18/19 21:04 06/18/19 21:04 Vital Signs Reviewed: Yes Procedures - Sedation Patient Received Moderate/Deep Sedation with Procedure: No Diagnostics - Vital Signs Vital Signs Temp Pulse Resp BP Pulse Ox 06/18/19 21:04 97.5 F 94 18 187/95 100 - Laboratory Result Diagrams: 06/18/19 21:47 06/18/19 21:47 Lab Statement: Any lab studies that have been ordered have been reviewed, and results considered in the medical decision making process. - CT CTA Chest/Abdomen/Pelvis CT Interpretation Completed By: Radiologist Summary of CT Findings: 1. No acute findings. 2. No thoracic aneurysm or dissection. ED Provider has reviewed this report. - EKG 2100 Cardiac Rate: NL - 94 BPM EKG Rhythm: Sinus Rhythm Summary of EKG Findings: LVH criteria met. ED Physician has reviewed and interpreted this report. Chest Pain Course/Dx - Course Course Of Treatment: Patient arrived with migratory chest pain and severe hypertension. Given patient's symptoms, a stat CTA was performed which showed no evidence of aortic dissection. Patient had an EKG which showed no ischemic changes. Patient had serial troponins which were negative. Patient is given nitroglycerin with no change in her symptoms. Patient has no PE risk factors and has a well score of 0. Patient's story does not sound like typical ACS and she has a HEART score of 2 she will follow up with her PCP for stress test. Patient's blood pressure improved without medication. Patient was encouraged to follow up with her primary care doctor for blood pressure recheck as well. - Diagnoses Provider Diagnoses: Chest pain, Hypertension Discharge ED - Sign-Out/Discharge Documenting (check all that apply): Patient Departure - Discharge - Discharge Plan Condition: Stable Disposition: HOME Patient Education Materials: Chest Pain (ED) Referrals: Gerri Martinez MD [Primary Care Provider] - 1 Week Joe Guillen MD [Medical Doctor] - 3 Days Additional Instructions: Follow up with the [facility] for ECHO. Return to the ED if experiencing chest pain or difficulty breathing. Get your blood pressure rechecked in one week. - Billing Disposition and Condition Condition: STABLE Disposition: Home - Attestation Statements Document Initiated by Inessa: Yes Documenting Scribe: Robin Cabrales Provider For Whom Inessa is Documenting (Include Credential): Navid Phillips MD Scribe Attestation: Robin Burk, scribed for Navid Phillips MD on 06/19/19 at 0333. Scribe Documentation Reviewed: Yes Provider Attestation: The documentation as recorded by the Robin madera accurately reflects the service I personally performed and the decisions made by me, Navid Phillips MD Status of Scribe Document: Viewed
[2019-06-18] MEDS ORDERED: Iodixanol 320 (CONTRAST) 100 ML SDV IV ONE (21:48)
[2019-06-18 21:53] LABS: ABS Basophils 0.1 10^3/ul (0-0.2); ABS Eosinophils 0.2 10^3/ul (0-0.6); ABS Lymphocytes 2.4 10^3/ul (1.0-4.8); ABS Monocytes 0.9 10^3/ul (0-0.8); ABS Neutrophils 6.1 10^3/ul (1.5-7.7); Eosinophil % 1.9 %; Hematocrit 38 % (35-47); Hemoglobin 12.9 g/dL (12.0-16.0); Lymphocyte % 24.6 %; Mean Corpuscular HGB Conc 34 g/dL (31-36); Mean Corpuscular Hemoglobin 31 pg (27-31); Mean Corpuscular Volume 89 fL (80-97); Mean Platelet Volume 7.8 fL (7.4-10.4); Platelet Count 321 10^3/uL (150-450); Red Blood Count 4.22 10^6 /uL (3.70-4.87); Red Cell Distribution Width 14 % (10-15); White Blood Count 9.6 10^3/uL (3.5-10.8)
[2019-06-18 21:59] LABS: INR 0.98 (0.82-1.09)
[2019-06-18 22:10] LABS: Albumin 3.9 g/dL (3.2-5.2); Albumin/Globulin Ratio 1.6 (1-3); BUN/Creatinine Ratio 31.7 (8-20); Calcium 9.4 mg/dL (8.6-10.3); EGFR African American 84.9 (>60); EGFR Non-African American 70.2 (>60); Globulin 2.5 g/dL (2-4); Potassium 3.6 mmol/L (3.5-5.0); Total Bilirubin 0.2 mg/dL (0.2-1.0); Total Protein 6.4 g/dL (6.4-8.9)
[2019-06-18] MEDS ORDERED: Aspirin 81 mg CHEW TAB* 81 MG TAB.CHEW PO ONE (22:58)
[2019-06-18] MEDS: Nitroglycerin TAB 0.4 MG* 0.4 MG TAB SL ONE ×2 (23:17→23:24)
[2019-06-18] MEDS ORDERED: Acetaminophen TAB* 325 MG PO ONE (23:29)
[2019-06-19 01:33] VITALS: BP 126/84
== END 2019-06-19 01:32 | disposition home or self-care (01) ==
LOC: ED 20:57
DX: R07.9 Chest pain, unspecified (principal); I10 Essential (primary) hypertension; F17.200 Nicotine dependence, unspecified, uncomplicated; Z88.1 Allergy status to other antibiotic agents; Z88.5 Allergy status to narcotic agent
CPT/HCPCS: 36415; 71275; 74174; 80053; 84484; 85025; 85610; 93005; 99283; A9270-GY; Q9967